=== PATIENT | female | born 1970 | race Caucasian/White ===

== ENCOUNTER → 2018-06-05 | Outpatient (CLI) | payer BC ==
--- NOTE | 2018-06-09 09:06 | RADIOLOGY IMAGING REPORT ---
FACILITY: [facility] - [place] PATIENT NAME: SUSHMA GTZ : [id number] MR: [id number] V: [id number] EXAM DATE: [id number] ORDERING PHYSICIAN: ELIGIO SAVAGE TECHNOLOGIST: Sydnie Marquez PROCEDURE:BILATERAL DIGITAL SCREENING MAMMOGRAM WITH CAD ASSISTED INTERPRETATION & 3D TOMOSYNTHESIS COMPARISON:Prior mammograms dated 06/09/15, 06/08/13, 04/16/12 INDICATIONS:SCREEING FINDINGS: Dense heterogeneous fibroglandular tissue is seen throughout the breasts. Most of the parenchymal pattern has remained stable allowing for difference in mammographic technique & patient positioning. There is a focal area of increased density in the medial portion of the Left breast for which spot compression view is recommended. DIAGNOSTIC CATEGORY 0--INCOMPLETE: NEED ADDITIONAL IMAGING EVALUATION. RECOMMENDATIONS: ADDITIONAL MAMMOGRAPHIC VIEWS REQUIRED: LEFT BREAST. IMPRESSION: BIRADS 0: Incomplete, need additional imaging. Additional views of the Left breast recommended as described. Dictated by: Rosalia Salgado M.D. on 06/05/2018 at 15:38 Transcribed by: GEORGINA on 06/08/2018 at 8:09 Approved by: Rosalia Salgado M.D. on 06/09/2018 at 9:04 [facility]
== END ==
LOC: MAMO 00:44
PROVIDERS: ATTEND Family Medicine
DX: Z12.31 Encounter for screening mammogram for malignant neoplasm of breast (principal); R92.8 Other abnormal and inconclusive findings on diagnostic imaging of breast
CPT/HCPCS: 77063; 77067

== ENCOUNTER → 2019-05-07 | Outpatient (CLI) | payer BC ==
--- NOTE | 2019-05-07 16:29 | RADIOLOGY IMAGING REPORT ---
FACILITY: [facility] - [place] PATIENT NAME: Kaia Chan : 1970 MR: [id number] V: [id number] EXAM DATE: ORDERING PHYSICIAN: ELIGIO SAVAGE TECHNOLOGIST: Location: [facility] [place] Patient: Kaia Chan : 1970 Visit/Account:[id number] Date of Sevice: 05/07/2019 PELVIC INDICATION: Right pelvic pain, COMPARISON: None Available FINDINGS: Uterus measures 9.1 x 5.2 x 6.5 cm. Uterus is mildly heterogeneous in echotexture. Uterine body wal l calcification measuring 1.1 cm present on the left and may represent a degenerated fibroid. Double wall endometrial stripe measures 3 mm and is homogeneous There is no free fluid in the cul-de-sac. Urinary bladder is empty. Pelvic vessels appear unremarkable on this examination. Right ovary measures 3.7 x 1.1 x 2.9 cm and shows normal blood flow and contains a 1.5 cm complex cys t likely hemorrhagic. Left ovary measures 2.6 x 1.6 x 2.4 cm and shows normal blood flow and contains several small follicl es. IMPRESSION: 1. 0.5 cm right ovarian hemorrhagic cyst. Pelvic ultrasound is otherwise within normal limits. Report Dictated By: Kavin Garcia at 05/07/2019 4:19 PM Report E-Signed By: Kavin Garcia at 05/07/2019 4:22 PM WSN:[id number]
== END ==
LOC: US 14:59
PROVIDERS: ATTEND Family Medicine
DX: N83.201 Unspecified ovarian cyst, right side (principal)
CPT/HCPCS: 76856